=== PATIENT | male | born 1985 | race African-American/Black ===

== ENCOUNTER 2024-03-01 06:30 | Emergency (ER) | payer OTHER ==
[~2024-03-01] VITALS: Ht 177.8 cm; Wt 127.0 kg
[2024-03-01 09:19] VITALS: BP 153/99; TEMP 97.9
[2024-03-01] MEDS ORDERED: IBUP-1953 PO (11:24)
[2024-03-01 11:33] VITALS: O2SAT 99
== END 2024-03-01 11:30 | disposition home or self-care (01) ==
LOC: ER 06:33
DX: M79.671 Pain in right foot (principal); M79.661 Pain in right lower leg; M54.59 Other low back pain
CPT/HCPCS: 72131-TC; 93971-TC